=== PATIENT | male | born 1965 | race Caucasian/White ===

== ENCOUNTER 2022-06-10 09:43 | Inpatient (IN) | payer OTHER ==
[2022-06-10 10:06] VITALS: BMI 24.1
[2022-06-10] MEDS ORDERED: LORazepam 1 MG TABLET PO PRN (11:39)
[2022-06-10] MEDS ORDERED: POLYETHYLENE GLYCOL (HEALTHYLAX) 3350 17 GM PACKET PO PRN (11:39)
[2022-06-10] MEDS ORDERED: MAG HYDROX/AL HYDROX/SIMETH 30 ML UNIT-DOSE CUP PO PRN (11:39)
[2022-06-10] MEDS ORDERED: BENZONATATE 200 MG CAPSULE PO PRN (11:39)
[2022-06-10] MEDS ORDERED: ONDANSETRON *ODT* 4 MG TABLET SL PRN (11:39)
[2022-06-10] MEDS ORDERED: hydrOXYzine PAMOATE 25 MG CAPSULE (FP) PO PRN (11:39)
[2022-06-10] MEDS ORDERED: IBUPROFEN 400 MG TABLET (FP) PO PRN (11:39)
[2022-06-10] MEDS ORDERED: MAGNESIUM HYDROX 2400MG/30ML ORAL SUSPENSION 30 ML CUP PO PRN (11:39)
[2022-06-10] MEDS ORDERED: BENZOCAINE/MENTHOL (CHLORASEPTIC ) LOZENGE MM PRN (11:39)
[2022-06-10] MEDS ORDERED: DICYCLOMINE HCL 10 MG CAPSULE PO PRN (11:39)
[2022-06-10] MEDS ORDERED: BISMUTH SUBSALICYLATE 262 MG/15 ML BTL PO PRN (11:39)
[2022-06-10] MEDS ORDERED: METHOCARBAMOL 500 MG TABLET PO PRN (11:39)
[2022-06-10] MEDS ORDERED: ACETAMINOPHEN 325 MG TABLET (FP) PO PRN (11:39)
[2022-06-10] MEDS ORDERED: IBUPROFEN 600 MG TABLET (FP) PO PRN (11:39)
[2022-06-10] MEDS ORDERED: LOPERAMIDE HCL 2 MG CAPSULE PO PRN (11:39)
[2022-06-10] MEDS ORDERED: guaiFENesin 600 MG TABLET.ER (FP) PO PRN (11:39)
[2022-06-10] MEDS: LORazepam 2 MG TABLET PO SCH ×2 (17:58→22:11)
[2022-06-10 18:07] LABS: HEMATOCRIT 41.6 % (35.4-49); HEMOGLOBIN 14.7 GM/dL (11.7-16.9); MCH 32.8 pg (25.7-33.7); MCHC 35.3 g/dl (32.0-35.9); MEAN CELL VOLUME 92.9 fl (80-96); MEAN PLT VOLUME 8.3 fl (7.5-11.1); PLATELET COUNT 239 10^3/uL (134-434); RBC 4.48 M/mm3 (4.00-5.60); RDW 13.3 % (11.9-15.9); WHITE BLOOD COUNT 7.2 K/mm3 (4.0-10.0)
[2022-06-10 18:11] LABS: ALBUMIN 3.8 g/dl (3.4-5.0); CALCIUM 10.3 mg/dL (8.5-10.1)
[2022-06-10 18:14] LABS: CREATININE 1.1 mg/dL (0.55-1.3)
[2022-06-10 18:15] LABS: BILIRUBIN,TOTAL 0.6 mg/dL (0.2-1); TOT PROT 7.2 g/dl (6.4-8.2)
[2022-06-10] MEDS ORDERED: SODIUM POLYSTYRENE SULFONATE 15 GM/60 ML BOTTLE PO ONE (18:31)
[2022-06-10] MEDS: MELATONIN 5 MG TABLETS PO SCH (22:11)
[2022-06-10] MEDS: THIAMINE HCL 100 MG TABLET (FP) PO SCH (22:11)
[2022-06-11] MEDS: LORazepam 2 MG TABLET PO SCH ×4 (05:28→22:37)
[2022-06-11] MEDS: PRENATAL VITAMINS W/ FOLIC ACID TABLET (FP) PO SCH (10:10)
[2022-06-11 12:23] LABS: HIV INTERPRETATION NEGATIVE (NEGATIVE)
[2022-06-11] MEDS: LACTULOSE 20 GM/30 ML UDC (FOR ORAL USE ONLY) PO SCH ×2 (17:18→22:09)
[2022-06-11] MEDS: THIAMINE HCL 100 MG TABLET (FP) PO SCH (22:09)
[2022-06-11] MEDS: MELATONIN 5 MG TABLETS PO SCH (22:09)
[2022-06-12] MEDS ORDERED: LORazepam 1 MG TABLET PO SCH (05:00)
[2022-06-12] MEDS: PRENATAL VITAMINS W/ FOLIC ACID TABLET (FP) PO SCH (09:51)
[2022-06-12] MEDS: LACTULOSE 20 GM/30 ML UDC (FOR ORAL USE ONLY) PO SCH ×4 (09:51→22:16)
[2022-06-12 11:18] LABS: CALCIUM 9.5 mg/dL (8.5-10.1)
[2022-06-12 11:19] LABS: ALBUMIN 3.8 g/dl (3.4-5.0)
[2022-06-12 11:22] LABS: CREATININE 0.9 mg/dL (0.55-1.3)
[2022-06-12 11:24] LABS: TOT PROT 7.1 g/dl (6.4-8.2)
[2022-06-12] MEDS: RIFAXIMIN 550 MG TABLET PO SCH ×2 (12:25→22:16)
[2022-06-12] MEDS: MELATONIN 5 MG TABLETS PO SCH (22:16)
[2022-06-12] MEDS: THIAMINE HCL 100 MG TABLET (FP) PO SCH (22:16)
[2022-06-13] MEDS ORDERED: LORazepam 0.5 MG TABLET PO PRN
[2022-06-13] MEDS: LORazepam 0.5 MG TABLET PO SCH ×4 (05:59→22:51)
[2022-06-13] MEDS: LACTULOSE 20 GM/30 ML UDC (FOR ORAL USE ONLY) PO SCH ×4 (10:34→22:51)
[2022-06-13] MEDS: PRENATAL VITAMINS W/ FOLIC ACID TABLET (FP) PO SCH (10:34)
[2022-06-13] MEDS: RIFAXIMIN 550 MG TABLET PO SCH ×2 (10:34→22:51)
[2022-06-13] MEDS: THIAMINE HCL 100 MG TABLET (FP) PO SCH (22:51)
[2022-06-13] MEDS: MELATONIN 5 MG TABLETS PO SCH (22:51)
[2022-06-14] MEDS ORDERED: LORazepam 0.5 MG TABLET PO ONE (05:00)
[2022-06-14] MEDS: PRENATAL VITAMINS W/ FOLIC ACID TABLET (FP) PO SCH (10:48)
[2022-06-14] MEDS: LACTULOSE 20 GM/30 ML UDC (FOR ORAL USE ONLY) PO SCH ×4 (10:49→22:01)
[2022-06-14] MEDS: RIFAXIMIN 550 MG TABLET PO SCH ×2 (10:49→22:01)
[2022-06-14] MEDS: MELATONIN 5 MG TABLETS PO SCH (22:01)
[2022-06-14] MEDS: THIAMINE HCL 100 MG TABLET (FP) PO SCH (22:01)
[2022-06-15] MEDS: LACTULOSE 20 GM/30 ML UDC (FOR ORAL USE ONLY) PO SCH ×4 (10:21→22:24)
[2022-06-15] MEDS: PRENATAL VITAMINS W/ FOLIC ACID TABLET (FP) PO SCH (10:21)
[2022-06-15] MEDS: RIFAXIMIN 550 MG TABLET PO SCH ×2 (10:58→22:24)
[2022-06-15] MEDS: MELATONIN 5 MG TABLETS PO SCH (22:24)
[2022-06-15] MEDS: THIAMINE HCL 100 MG TABLET (FP) PO SCH (22:24)
[2022-06-16] MEDS: RIFAXIMIN 550 MG TABLET PO SCH (10:21)
[2022-06-16] MEDS: PRENATAL VITAMINS W/ FOLIC ACID TABLET (FP) PO SCH (10:21)
[2022-06-16] MEDS: LACTULOSE 20 GM/30 ML UDC (FOR ORAL USE ONLY) PO SCH ×2 (10:21→13:49)
[2022-06-16 13:00] VITALS: BP 138/88; PULSE 90; RESP 18; TEMP 98
== END 2022-06-16 14:37 | disposition other institution (70) | DRG 775 ==
LOC: YASAS 09:43 → Y3N 12:44
PROVIDERS: ADMIT Allergy & Immunology; ATTEND Surgery
PROC: HZ2ZZZZ Detoxification Services for Substance Abuse Treatment (ICD-10-PCS; principal; 2022-06-10)
DX: F10.230 Alcohol dependence with withdrawal, uncomplicated (principal); F10.27 Alcohol dependence with alcohol-induced persisting dementia; F39 Unspecified mood [affective] disorder; G47.00 Insomnia, unspecified; R79.89 Other specified abnormal findings of blood chemistry; Z99.89 Dependence on other enabling machines and devices
CPT/HCPCS: 36415; 80053; 82140; 83036; 84132; 85027; 86780; 87389; 87811; 93005; 93010; C9803-CS; U0003; U0005